=== PATIENT | male | born 1960 | race Caucasian/White ===

== ENCOUNTER 2020-07-04 06:55 | Emergency (ER) | payer MEDICARE ==
[2020-07-04 07:59] LABS: HEMOGLOBIN 15.7 gm/dl (14.0-17.5); RED BLOOD COUNT 5.83 M/UL (4.20-5.50); WHITE BLOOD COUNT 10.6 K/UL (4.5-11.0)
[2020-07-04 08:07] LABS: BUN/CREATININE RATIO 18 (0-10)
[2020-07-04] MEDS ORDERED: MORGIDOX100 MG PO (15:29)
[2020-07-04] MEDS ORDERED: PREDNISONE 20 M20 MG GT (15:29)
[2020-07-04] MEDS ORDERED: NEBULIZER UNIT (15:29)
[2020-07-04] MEDS ORDERED: ALBUTEROL2.5 MG/3 M INH (15:29)
== END 2020-07-04 15:55 | disposition home or self-care (01) ==
LOC: ER1 06:55
PROVIDERS: Family Medicine
DX: J44.1 Chronic obstructive pulmonary disease with (acute) exacerbation (principal); R91.1 Solitary pulmonary nodule; E11.9 Type 2 diabetes mellitus without complications; F17.200 Nicotine dependence, unspecified, uncomplicated; Z20.828 Contact with and (suspected) exposure to other viral communicable diseases
CPT/HCPCS: 36600; 71045; 80053; 81001; 82550; 82553; 82803; 83605; 83735; 84484; 85025; 85379; 85610; 87040; 87086; 93005; 94640; 94664; 96374; 99285; J2930; Q9967; U0002